=== PATIENT | female | born 1980 | race Caucasian/White ===

== ENCOUNTER 2017-11-08 10:44 | Inpatient (IN) | payer OTHER ==
[~2017-11-08] VITALS: Ht 167.6 cm; Wt 93.2 kg
[2017-11-08 10:22] VITALS: BP 133/83
[2017-11-08 11:28] LABS: APPEARANCE CLEAR ((CLEAR)); BILIRUBIN NEGATIVE; BLOOD MODERATE; COLOR YELLOW ((YELLOW)); GLUCOSE (STRIP) NEGATIVE; KETONES NEGATIVE; LEUKOCYTES NEGATIVE; NITRITE NEGATIVE; PROTEIN (STRIP) NEGATIVE; SPECIFIC GRAVITY 1.006 (1.000-1.030); UROBILINOGEN 0.2 MG/DL (0.2-1.0)
[2017-11-08 11:38] LABS: BACTERIA RARE /HPF; EPITHELIAL CELLS 1+ /HPF; MUCUS NONE SEEN /LPF; RED BLOOD CELLS 0-5 /HPF (0-5); UCUL ADDED? NO; WHITE BLOOD CELLS 0-5 /HPF (0-5)
[2017-11-08 11:42] LABS: BASOPHIL (%) 0.3 % (0-1); EOSINOPHIL (%) 0.3 % (0-5); HEMATOCRIT 40.4 % (36.0-46.0); HEMOGLOBIN 13.8 G/DL (11.9-15.5); IMMATURE GRANULOCYTE (%) 0.5 % (0.0-0.7); LYMPHOCYTE (%) 10.6 % (15-42); LYMPHOCYTE COUNT 1.6 K/uL (1.0-2.8); MCH 30.8 PG (29.0-34.0); MCHC 34.2 G/DL (30.0-36.0); MCV 90.2 FL (83-99); MONOCYTE (%) 7.1 % (3-12); MONOCYTE COUNT 1.1 K/uL (0-0.8); NEUTROPHIL (%) 81.2 % (45-76); NEUTROPHIL COUNT 12.1 K/uL (1.8-6.4); PLATELET COUNT 213 K/uL (156-360); RED BLOOD COUNT 4.48 M/uL (3.80-5.20); WHITE BLOOD COUNT 14.9 K/uL (4.1-10.2)
[2017-11-08 12:19] LABS: GROUP B STREP NEGATIVE (NEGATIVE)
[2017-11-08 12:27] VITALS: BP 130/85
[2017-11-08 13:15] VITALS: BP 157/89
[2017-11-08 13:20] VITALS: BP 119/70
[2017-11-08 13:23] LABS: AMPHETAMINE NEGATIVE (500 ng/mL); BARBITURATES NEGATIVE (200 ng/mL); BENZODIAZEPINES NEGATIVE (150 ng/mL); BUPRENORPHINE NEGATIVE (10 ng/mL); COCAINE NEGATIVE (150 ng/mL); METHADONE NEGATIVE (200 ng/mL); METHAMPHETAMINE NEGATIVE (500 ng/mL); OPIATES (MORPHINE) NEGATIVE (100 ng/mL); OXYCODONE NEGATIVE (100 ng/mL); PHENCYCLIDINE NEGATIVE (25 ng/mL); PROPOXYPHENE NEGATIVE (300 ng/mL); THC CANNABINOIDS NEGATIVE (50 ng/mL); TRICYCLIC ANTIDEPRESSANTS NEGATIVE (300 ng/mL)
[2017-11-08 13:26] VITALS: BP 135/71
[2017-11-08 13:30] VITALS: BP 135/90
[2017-11-09 06:55] LABS: BASOPHIL (%) 0.3 % (0-1); EOSINOPHIL (%) 0.2 % (0-5); HEMATOCRIT 32.5 % (36.0-46.0); IMMATURE GRANULOCYTE (%) 0.7 % (0.0-0.7); LYMPHOCYTE (%) 12.9 % (15-42); LYMPHOCYTE COUNT 1.7 K/uL (1.0-2.8); MCH 30.5 PG (29.0-34.0); MCHC 33.2 G/DL (30.0-36.0); MCV 91.8 FL (83-99); MONOCYTE (%) 9.1 % (3-12); MONOCYTE COUNT 1.2 K/uL (0-0.8); NEUTROPHIL (%) 76.8 % (45-76); NEUTROPHIL COUNT 10.2 K/uL (1.8-6.4); PLATELET COUNT 184 K/uL (156-360); RBC DIS.WIDTH-CV 14.2 % (11.8-14.6); RBC DIS.WIDTH-SD 48.1 % (39-53); WHITE BLOOD COUNT 13.3 K/uL (4.1-10.2)
[2017-11-09 06:57] LABS: HEMOGLOBIN 10.8 G/DL (11.9-15.5); RED BLOOD COUNT 3.54 M/uL (3.80-5.20)
[2017-11-09 09:26] VITALS: BP 108/77
[2017-11-09 09:57] LABS: HEMOGLOBIN A1c (GLYCOHEMOGLOB) 5.3 % (Below 5.7)
[2017-11-09 11:32] VITALS: BP 131/81
[2017-11-09 15:24] VITALS: BP 129/74
[2017-11-10 07:38] VITALS: BP 137/93
[2017-11-10 15:31] VITALS: BP 117/79
[2017-11-11 07:40] VITALS: BP 131/66
[2017-11-11 15:38] VITALS: BP 126/78
[2017-11-11 19:44] VITALS: BP 116/81
[2017-11-12 00:16] VITALS: BP 128/67
[2017-11-12 02:36] VITALS: BP 102/62
[2017-11-12] MEDS ORDERED: IBUPROFEN800 MG PO (08:13)
[2017-11-12] MEDS ORDERED: ENDOCET 5-3251 EACH PO (08:13)
[2017-11-12] MEDS ORDERED: CEPHALEXIN500 MG PO (08:13)
== END 2017-11-12 13:25 | disposition home or self-care (01) | DRG 765 ==
LOC: LDRP-OP 10:44 → 2WEST 10:45
PROVIDERS: Advanced Practice Midwife; Obstetrics & Gynecology
PROC: 10D00Z1 Extraction of Products of Conception, Low, Open Approach (ICD-10-PCS; principal; 2017-11-08)
PROC: 3E0R3BZ Introduction of Anesthetic Agent into Spinal Canal, Percutaneous Approach (ICD-10-PCS; principal; 2017-11-08)
PROC: 00HU33Z Insertion of Infusion Device into Spinal Canal, Percutaneous Approach (ICD-10-PCS; principal; 2017-11-08)
DX: O76 Abnormality in fetal heart rate and rhythm complicating labor and delivery (principal); Z37.0 Single live birth; Z3A.40 40 weeks gestation of pregnancy; O77.0 Labor and delivery complicated by meconium in amniotic fluid; O24.420 Gestational diabetes mellitus in childbirth, diet controlled; Z87.891 Personal history of nicotine dependence; I80.8 Phlebitis and thrombophlebitis of other sites; O86.89 Other specified puerperal infections; O09.523 Supervision of elderly multigravida, third trimester; Z86.718 Personal history of other venous thrombosis and embolism
CPT/HCPCS: 36600; 81003; 82948; 83030; 83036; 85025; 86850; 86900; 86901; 87653; 88307; C1755; J0690; J2210; J2765; J2790; J3010; J7120